=== PATIENT | male | born 2000 | race Caucasian/White ===

== ENCOUNTER 2019-05-03 00:47 | Emergency (ER) | payer SELFPAY ==
[~2019-05-03] VITALS: Ht 188 cm; Wt 67.8 kg
[2019-05-03 01:41] VITALS: Ht 188 cm; Wt 67.8 kg
[2019-05-03] MEDS ORDERED: KEFLEX500 MG PO (02:40)
[2019-05-03 03:16] VITALS: BP 126/81
== END 2019-05-03 03:16 | disposition home or self-care (01) ==
LOC: D.ER 00:47
DX: S01.81XA Laceration without foreign body of other part of head, initial encounter (principal); Y04.2XXA Assault by strike against or bumped into by another person, initial encounter; Y93.89 Activity, other specified; Y92.89 Other specified places as the place of occurrence of the external cause